=== PATIENT | male | born 1985 | race Caucasian/White ===

== ENCOUNTER 2019-01-22 12:13 | Emergency (ER) | payer BC ==
--- OUTSIDE RECORDS SUMMARY | 2019-01-22 12:15 | XMS REPORT | Clinical Summary ---
:1985 Author Organization [facility] Address [address] [place] [address] Care Team Providers Name Role Phone Candelaria Campbell MD Primary Care Provider Allergies No Known Allergies Medications No known medications Active Problems No known active problems Family History Medical History Relation Name Comments Diabetes Brother Yeison Heart attack Brother Yeison Heart attack Brother Joe Colon cancer Mother Hypertension Mother Stroke Mother Relation Name Status Comments Brother Yeison (Age 35) Brother Joe Alive Mother Alive Sister (Age 33) pnuemo Social History Tobacco Use Types Packs/Day Years Used Date Light Tobacco Smoker Cigarettes Smokeless Tobacco: Former User Chew Comments: socially Alcohol Use Drinks/Week oz/Week Comments Yes socially Sex Assigned at Date Recorded Not on file Job Start Date Occupation Industry Not on file Not on file Not on file Travel History Travel Start Travel End No recent travel history available. Last Filed Vital Signs Not on file Plan of Treatment Health Maintenance Due Date Last Done Comments INFLUENZA VACCINE 05/09/2019 Results Not on fileafter 01/21/2018 Insurance Payer Benefit Plan / Group Subscriber ID Type Phone Address BCBS BCBS CHOICE PPO/FEDERAL EMPL PPO xxxxxxxxxxxx PPO Advance Directives Patient has advance care planning documents on file. For more information, please contact:Gary Garciaist[address] [place] [address]
[2019-01-22] MEDS ORDERED: ACETAMINOPHEN 500 MG TAB ONE (12:38)
[2019-01-22] MEDS ORDERED: NA CHLORIDE 0.9% 1,000 ML ONE (14:20)
[2019-01-22 14:34] LABS: Absolute Lymphocytes (CBC) 0.9 K/uL (0.7-4.9); Absolute Monocytes 1.4 K/uL (0.1-1.3); Absolute Neutrophil 12.5 K/uL (1.8-8.0); Basophils % 0.3 % (0-1.3); Eosinophils % 0.1 % (0-4.4); Hematocrit 42.8 % (39.6-49.0); Lymphocytes % 6.3 % (15.3-44.8); MPV 7.4 fL (7.6-11.3); Monocytes % 9.5 % (3.3-12.3); RBC Red Blood Cell Count 5.09 M/uL (4.33-5.43)
[2019-01-22 14:59] LABS: Potassium 3.5 mmol/L (3.5-5.1)
[2019-01-22 15:03] LABS: CKMB Creatine Kinase MB < 1.0 ng/mL (0.3-3.6); Creatine Phosphokinase 147 U/L (39-308)
[2019-01-22 15:04] LABS: Blood Morphology Comment NOT SEEN (NOT SEEN); Platelet Estimate ADEQ
[2019-01-22 15:28] LABS: Urine Blood NEGATIVE (NEG); Urine Glucose TRACE (NEG); Urine Protein 2+ (NEG)
--- NOTE | 2019-01-22 16:01 | RAD REPORT ---
EXAM DESCRIPTION: CT - Stone Protocol - 01/22/2019 3:40 pm CLINICAL HISTORY: Flank pain. FLANK PAIN COMPARISON: No comparisons TECHNIQUE: Axial images were obtained without oral or IV contrast. Lack of contrast limits solid org an and vascular assessment. The [id number] spans the entirety of the system partially obscuring uppermost abdomen and lung bases. Coronal reformatted images were obtained and reviewed. All CT scans are performed using dose optimization technique as appropriate and may include automated exposure control or mA/KV adjustment according to patient size. FINDINGS: Moderate airspace opacity is present in the medial left lung base and a small airspace opa cities present in the inferior medial lingula, compatible with pneumonia. Imaged portions of the liver and spleen show no suspicious findings on non-contrast imaging. The panc reas and adrenal glands are normal. No pathologic lymphadenopathy in the abdomen or pelvis. No urinary tract stones or obstructive uropathy. No bowel obstruction, free air, free fluid or abscess. Normal appendix noted.Small fat containing sup raumbilical hernia. No significant bony abnormality. IMPRESSION: No urinary tract stones or obstructive uropathy. Moderate airspace opacity medial left lung base and small airspace opacity in the lingula, likely rep resents pneumonia.
--- NOTE | 2019-01-22 16:24 | ER ---
Nurse's Notes [facility] Name: Temo Marcelino Jr Age: 33 yrs Sex: Male : 1985 Arrival Date: 01/22/2019 Time: 12:16 Bed 30 Private MD: Diagnosis: Volume depletion;Pneumonia, unspecified organism Presentation: 01/22 12:21 Presenting complaint: Patient states: i started having body aches, hot and cold sweats, hj headache that started Monday, reports fever;. Transition of care: patient was not received from another setting of care. Onset of symptoms was January 22, 2019. Risk Assessment: Do you want to hurt yourself or someone else? Patient reports no desire to harm self or others. Initial Sepsis Screen: Does the patient meet any 2 criteria? Yes Does the patient have a suspected source of infection? No. Patient's initial sepsis screen is negative. Care prior to arrival: None. 12:21 Method Of Arrival: Ambulatory 12:21 Acuity: MO 4 hj Triage Assessment: 15:29 Headache History: The patient has had previous headaches. General: Appears in no mg2 apparent distress. comfortable, Behavior is calm, cooperative. Pain: Complains of pain in whole body Pain does not radiate. Pain currently is 5 out of 10 on a pain scale. Pain began gradually, 2-3 days ago. Is intermittent, Also complains of inability to work. Historical: - Allergies: 12:22 No Known Allergies; hj - PMHx: 12:22 None; hj - PSHx: 12:22 None; hj - Immunization history:: Adult Immunizations not up to date. - Social history:: Smoking status: unknown. - Ebola Screening: : No symptoms or risks identified at this time. Screenin:30 Abuse screen: Denies threats or abuse. Denies injuries from another. Nutritional aj1 screening: No deficits noted. Tuberculosis screening: No symptoms or risk factors identified. 15:24 Fall Risk IV access (20 points). mg2 Assessment: 13:30 General: Appears in no apparent distress. uncomfortable, ill, Behavior is calm, aj1 cooperative, appropriate for age. Pain: Complains of pain in generalized bodyaches. Neuro: Level of Consciousness is awake, alert, obeys commands, Oriented to person, place, time, situation. Neuro: Moves all extremities. Full function Gait is steady, Speech is normal, Facial symmetry appears normal, Reports headache. Cardiovascular: Patient's skin is warm and dry. Respiratory: Airway is patent Respiratory effort is even, unlabored, Respiratory pattern is regular, symmetrical. GI: No signs and/or symptoms were reported involving the gastrointestinal system. : No signs and/or symptoms were reported regarding the genitourinary system. EENT: No signs and/or symptoms were reported regarding the EENT system. Derm: No signs and/or symptoms reported regarding the dermatologic system. Skin is pink, warm \T\ dry. normal. Musculoskeletal: No signs and/or symptoms reported regarding the musculoskeletal system. Circulation, motion, and sensation intact. 14:12 Reassessment: Patient appears in no apparent distress at this time. No changes from aj1 previously documented assessment. Patient and/or family updated on plan of care and expected duration. Pain level reassessed. Patient is alert, oriented x 3, equal unlabored respirations, skin warm/dry/pink. 15:29 Reassessment: Patient appears in no apparent distress at this time. Patient and/or mg2 family updated on plan of care and expected duration. Pain level reassessed. Patient is alert, oriented x 3, equal unlabored respirations, skin warm/dry/pink. 16:42 Reassessment: Patient states feeling better. Patient states symptoms have improved. mg2 Vital Signs: 12:22 BP 114 / 68; Pulse 105; Resp 18; Temp 103.0(O); Pulse Ox 96% on R/A; Weight 97.52 kg; Height 5 ft. 9 in. (175.26 cm); Pain 7/10; 13:25 BP 107 / 74; Pulse 96; Resp 18; Temp 101.6; Pulse Ox 100% on R/A; aj1 14:12 BP 110 / 75; Pulse 90; Resp 18; Pulse Ox 95% on R/A; aj1 15:23 BP 105 / 77; Pulse 89; Resp 18; Temp 100(O); Pulse Ox 98% on R/A; mg2 16:35 BP 110 / 70; Pulse 83; Resp 18; Temp 99.8(O); Pulse Ox 100% on R/A; Pain 2/10; mg2 12:22 Body Mass Index 31.75 (97.52 kg, 175.26 cm) ED Course: 12:16 Patient arrived in ED. as 12:22 Triage completed. hj 12:24 Arm band placed on left wrist. hj 12:25 Nancie Payton FNP-C is PHCP. kb 12:25 Keven Rodriguez MD is Attending Physician. kb 13:07 Shayy Sweeney, SHIRA is Primary Nurse. aj1 13:30 Patient has correct armband on for positive identification. Bed in low position. Call aj1 light in reach. Side rails up X 1. 13:30 No provider procedures requiring assistance completed. aj1 14:20 Initial lab(s) drawn, by me, sent to lab. Inserted saline lock: 18 gauge in right aj1 antecubital area, using aseptic technique. Blood collected. 14:25 CBC with Diff Sent. aj1 14:25 Basic Metabolic Panel Sent. aj1 14:25 [place] Screen Profile Sent. aj1 14:25 CPK Sent. aj1 14:25 Ckmb Sent. aj1 14:25 Urine Dipstick--Ancillary (enter results) Sent. aj1 15:[address] via wheelchair. jg6 15:36 CT completed. Patient tolerated procedure well. Patient moved back from CT. vm2 15:39 CT Stone Protocol In Process Unspecified. EDMS 16:41 IV discontinued, intact, bleeding controlled, No redness/swelling at site. Pressure mg2 dressing applied. Administered Medications: 12:24 Drug: Tylenol 1000 mg Route: PO; hj 14:23 Follow up: Response: No adverse reaction aj1 14:23 Drug: NS 0.9% 1000 ml Route: IV; Rate: 1000 ml; Site: right antecubital; aj1 16:35 Follow up: Response: No adverse reaction; IV Status: Completed infusion mg2 16:34 Drug: Zithromax 500 mg Route: PO; mg2 16:35 Follow up: Response: No adverse reaction; Medication administered at discharge. mg2 16:35 Drug: Rocephin 1 grams Route: IV; Rate: calculated rate; Site: right antecubital; mg2 16:35 Follow up: Response: No adverse reaction; Medication administered at discharge.; IV mg2 Status: Completed infusion Outcome: 16:23 Discharge ordered by . kb 16:42 Discharged to home ambulatory. mg2 16:42 Condition: stable 16:42 Discharge instructions given to patient, Instructed on discharge instructions, follow up and referral plans. medication usage, Demonstrated understanding of instructions, follow-up care, medications, Prescriptions given X 1. 16:43 Patient left the ED. mg2 Signatures: Dispatcher [employer] EDNancie Hickman, FARHEEN ADVANCED DEVELOPER-Shayy Rice RN RN aj1 Nicole Gorman as Mansoor Caballero RN RN Saskia Chaney 2 Donte Tineo RN RN [facility] Lourdes Reilly jg6 Corrections: (The following items were deleted from the chart) 12:22 12:19 Presenting complaint: hj hj 12:26 12:22 Pulse 105bpm; Resp 18bpm; Pulse Ox 96% RA; Temp 103.0F Oral; 97.52 kg; Height 5 hj ft. 9 in.; BMI: 31.7; Pain 7/10; hj 15:28 15:23 Pulse 89bpm; Resp 18bpm; Pulse Ox 98% RA; mg2 mg2
--- NOTE | 2019-01-22 16:24 | EDPHYS ---
Physician Documentation [facility] Name: Temo Marcelino Jr Age: 33 yrs Sex: Male : 1985 Arrival Date: 01/22/2019 Time: 12:16 Bed 30 Private MD: ED Physician Keven Rodriguez HPI: 01/22 16:21 This 33 yrs old Male presents to ER via Ambulatory with complaints of Pain kb All Over, Headache. 16:21 The patient or guardian reports flu symptoms, arthralgias, low-grade fever, myalgias. kb 16:21 Onset: The symptoms/episode began/occurred 3 day(s) ago. Severity of symptoms: At their kb worst the symptoms were moderate, in the emergency department the symptoms are unchanged. Modifying factors: The symptoms are alleviated by nothing, the symptoms are aggravated by nothing. Associated signs and symptoms: Pertinent positives: fever, Pertinent negatives: chest pain, diarrhea, ear ache, nausea, rhinorrhea, sore throat, vomiting. The patient has not experienced similar symptoms in the past. The patient has not recently seen a physician. Pt reports body aches, headache and fever for 3 days. Denies cough, congestion, or any other symptoms. States body aches are worse in flanks. Historical: - Allergies: 12:22 No Known Allergies; hj - PMHx: 12:22 None; hj - PSHx: 12:22 None; hj - Immunization history:: Adult Immunizations not up to date. - Social history:: Smoking status: unknown. - Ebola Screening: : No symptoms or risks identified at this time. ROS: 16:20 ENT: Negative for injury, pain, and discharge, Neck: Negative for injury, pain, and kb swelling, Cardiovascular: Negative for chest pain, palpitations, and edema, Respiratory: Negative for shortness of breath, cough, wheezing, and pleuritic chest pain, Abdomen/GI: Negative for abdominal pain, nausea, vomiting, diarrhea, and constipation, Back: Negative for injury and pain, MS/Extremity: Negative for injury and deformity, Skin: Negative for injury, rash, and discoloration. 16:20 Constitutional: Positive for body aches, chills, fatigue, fever, malaise, Negative for poor PO intake, weight loss. 16:20 Neuro: Positive for headache. Exam: 16:20 Constitutional: This is a well developed, well nourished patient who is awake, alert, kb and in no acute distress. Head/Face: Normocephalic, atraumatic. ENT: Nares patent. No nasal discharge, no septal abnormalities noted. Tympanic membranes are normal and external auditory canals are clear. Oropharynx with no redness, swelling, or masses, exudates, or evidence of obstruction, uvula midline. Mucous membranes moist. Neck: Trachea midline, no thyromegaly or masses palpated, and no cervical lymphadenopathy. Supple, full range of motion without nuchal rigidity, or vertebral point tenderness. No Meningismus. Chest/axilla: Normal chest wall appearance and motion. Nontender with no deformity. No lesions are appreciated. Cardiovascular: Regular rate and rhythm with a normal S1 and S2. No gallops, murmurs, or rubs. Normal PMI, no JVD. No pulse deficits. Respiratory: Lungs have equal breath sounds bilaterally, clear to auscultation and percussion. No rales, rhonchi or wheezes noted. No increased work of breathing, no retractions or nasal flaring. Abdomen/GI: Soft, non-tender, with normal bowel sounds. No distension or tympany. No guarding or rebound. No evidence of tenderness throughout. Back: No spinal tenderness. No costovertebral tenderness. Full range of motion. Skin: Warm, dry with normal turgor. Normal color with no rashes, no lesions, and no evidence of cellulitis. MS/ Extremity: Pulses equal, no cyanosis. Neurovascular intact. Full, normal range of motion. Neuro: Awake and alert, GCS 15, oriented to person, place, time, and situation. Cranial nerves II-XII grossly intact. Motor strength 5/5 in all extremities. Sensory grossly intact. Cerebellar exam normal. Normal gait. Vital Signs: 12:22 BP 114 / 68; Pulse 105; Resp 18; Temp 103.0(O); Pulse Ox 96% on R/A; Weight 97.52 kg; hj Height 5 ft. 9 in. (175.26 cm); Pain 7/10; 13:25 BP 107 / 74; Pulse 96; Resp 18; Temp 101.6; Pulse Ox 100% on R/A; aj1 14:12 BP 110 / 75; Pulse 90; Resp 18; Pulse Ox 95% on R/A; aj1 15:23 BP 105 / 77; Pulse 89; Resp 18; Temp 100(O); Pulse Ox 98% on R/A; mg2 16:35 BP 110 / 70; Pulse 83; Resp 18; Temp 99.8(O); Pulse Ox 100% on R/A; Pain 2/10; mg2 12:22 Body Mass Index 31.75 (97.52 kg, 175.26 cm) MDM: 13:07 Patient medically screened. kb 16:21 Data reviewed: vital signs, nurses notes. Data interpreted: Pulse oximetry: on room air kb is 98 %. Interpretation: normal. Counseling: I had a detailed discussion with the patient and/or guardian regarding: the historical points, exam findings, and any diagnostic results supporting the discharge/admit diagnosis, lab results, radiology results, the need for outpatient follow up, a family practitioner, to return to the emergency department if symptoms worsen or persist or if there are any questions or concerns that arise at home. 01/22 12:25 Order name: Flu; Complete Time: 13:47 kb 01/22 13:48 Order name: CBC with Diff; Complete Time: 15:06 kb 01/22 13:48 Order name: Basic Metabolic Panel; Complete Time: 15:00 kb 01/22 13:48 Order name: [place] Screen Profile; Complete Time: 15:12 kb 01/22 13:51 Order name: CPK; Complete Time: 15:06 kb 01/22 13:53 Order name: Ckmb; Complete Time: 15:06 kb 01/22 13:48 Order name: Urine Dipstick-Ancillary (obtain specimen); Complete Time: 14:25 kb 01/22 13:56 Order name: Urine Dipstick--Ancillary (enter results); Complete Time: 15:32 kb 01/22 14:36 Order name: Manual Differential; Complete Time: 15:06 EDMS 01/22 15:20 Order name: CT Stone Protocol; Complete Time: 16:13 kb 01/22 13:48 Order name: IV Start; Complete Time: 14:25 kb Administered Medications: 12:24 Drug: Tylenol 1000 mg Route: PO; 14:23 Follow up: Response: No adverse reaction aj1 14:23 Drug: NS 0.9% 1000 ml Route: IV; Rate: 1000 ml; Site: right antecubital; aj1 16:35 Follow up: Response: No adverse reaction; IV Status: Completed infusion mg2 16:34 Drug: Zithromax 500 mg Route: PO; mg2 16:35 Follow up: Response: No adverse reaction; Medication administered at discharge. mg2 16:35 Drug: Rocephin 1 grams Route: IV; Rate: calculated rate; Site: right antecubital; mg2 16:35 Follow up: Response: No adverse reaction; Medication administered at discharge.; IV mg2 Status: Completed infusion Disposition: 01/23 06:36 Co-signature as Attending Physician, Keven Rodriguez MD I agree with the assessment and the [facility] plan of care. Disposition: 01/22/19 16:23 Discharged to Home. Impression: Volume depletion, Pneumonia, unspecified organism. - Condition is Stable. - Discharge Instructions: Community-Acquired Pneumonia, Adult, [id number], Dehydration, Adult, [id number]. - Prescriptions for Zithromax 500 mg Oral Tablet - take 1 tablet by ORAL route once daily for 5 days; 5 tablet. - Work release form, Medication Reconciliation Form, Thank You Letter, Antibiotic Education, Prescription Opioid Use form. - Follow up: Emergency Department; When: As needed; Reason: Worsening of condition. Follow up: Private Physician; When: 2 - 3 days; Reason: Recheck today's complaints, Continuance of care, Re-evaluation by your physician. Signatures: Dispatcher [employer] Nancie Calero, FURNACE COMBUSTION ANALYST-C FURNACE COMBUSTION ANALYST-Shayy Rice RN RN Keven Neal MD MD cha Joaquin, Henry, RN RN Donte Tineo RN RN mg2 Corrections: (The following items were deleted from the chart) 01/22 16:43 16:23 01/22/2019 16:23 Discharged to Home. Impression: Volume depletion; Pneumonia, mg2 unspecified organism. Condition is Stable. Forms are Medication Reconciliation Form, Thank You Letter, Antibiotic Education, Prescription Opioid Use. Follow up: Emergency Department; When: As needed; Reason: Worsening of condition. Follow up: Private Physician; When: 2 - 3 days; Reason: Recheck today's complaints, Continuance of care, Re-evaluation by your physician. kb
[2019-01-22] MEDS ORDERED: CEFTRIAXONE/SWI 1gm 1 GM/10 ML SYR ONE (16:42)
[2019-01-22] MEDS ORDERED: AZITHROMYCIN 250 MG TAB ONE (16:42)
== END 2019-01-22 16:43 | disposition home or self-care (01) ==
LOC: ER 12:13
DX: E86.9 Volume depletion, unspecified (principal); J18.9 Pneumonia, unspecified organism
CPT/HCPCS: 36415; 74176; 76377; 80048; 81003; 82550; 82553; 85025; 86308; 87804; 96361; 96374; 99284; J0696; J7030